=== PATIENT | male | born 2000 | race Caucasian/White ===

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

== ENCOUNTER 2020-03-28 23:51 | Emergency (ER) | payer OTHER ==
[~2020-03-28] VITALS: Ht 180.3 cm; Wt 71.0 kg
[2020-03-29] MEDS ORDERED: ALUMINUM/MAG/SIMETHICONE 30 ML UDC PO PRN (00:30)
[2020-03-29] MEDS ORDERED: MAALOX/HYOSCYAMINE/LIDOCAINE 45 ML BTL ONE (00:30)
[2020-03-29] MEDS ORDERED: ALUMINUM/MAG/SIMETHICONE 30 ML UDC ONE (00:46)
[2020-03-29 00:47] VITALS: BP 119/66
== END 2020-03-29 00:49 | disposition home or self-care (01) ==
LOC: ED 03-29 00:19
DX: R07.9 Chest pain, unspecified (principal); R10.9 Unspecified abdominal pain; J02.9 Acute pharyngitis, unspecified
CPT/HCPCS: 93005; 99283

== ENCOUNTER 2020-07-19 02:36 | Emergency (ER) | payer OTHER ==
[~2020-07-19] VITALS: Ht 180.3 cm; Wt 74.4 kg
[2020-07-19 02:40] VITALS: BP 135/95
== END 2020-07-19 04:12 | disposition home or self-care (01) ==
LOC: ED 03:11
DX: K08.89 Other specified disorders of teeth and supporting structures (principal)
CPT/HCPCS: 99283

== ENCOUNTER 2020-07-31 23:36 | Emergency (ER) | payer OTHER ==
[~2020-07-31] VITALS: Ht 180.3 cm; Wt 75.0 kg
--- NOTE | 2020-07-31 23:46 | NUR ---
PT TO RADIOLOGY AT THIS TIME VIA WHEELCHAIR
--- NOTE | 2020-08-01 00:03 | NUR ---
Task RN. Assessment: A&o x4, answering questions appropriately. States he was drinking ETOH with friends this evening, dropped 45# weight onto R foot approx 30 min [employer]. Mild ecchymosis/swelling noted to R foot, no gross deformities. (+) CSM, (+) DP pulse noted to affected extremity. States he took 800 mg ibuprofen [employer] without effect. C/o 7/10 pain. Denies significant medical hx. Bed low, side rails up, call veliz within reach. Friends at bedside with pt's consent
[2020-08-01] MEDS ORDERED: HYDROmorphone 1 MG/ML, 1ML INJ ONE ×2 (00:16→00:22)
--- NOTE | 2020-08-01 00:29 | NUR ---
BEDSIDE REPORT FROM FRANCHESCA VALENCIA RN. PT NAD, WAITING FOR CT, WCTM.
[2020-08-01] MEDS ORDERED: HYDROmorphone 1 MG/ML, 1ML INJ IM ONE (00:30)
--- NOTE | 2020-08-01 00:36 | NUR ---
PT TO CT AT THIS TIME.
--- NOTE | 2020-08-01 00:59 | NUR ---
pt resting on pita, TIARA, states pain is significantly decreased, now a 2/10. waiting for CT read, WCTM.
[2020-08-01 02:22] VITALS: BP 121/87
--- NOTE | 2020-08-01 02:28 | NUR ---
Patient given discharge instructions and they have confirmed that they understand the instructions. Patient ambulatory with steady gait. NAD, DENIES ADDITIONAL QUESTIONS OR NEEDS, FRIEND DRIVING HOME, NO BELONGINGS LEFT IN ROOM AFTER DC.
== END 2020-08-01 02:29 | disposition home or self-care (01) ==
LOC: ED 23:59
DX: S90.31XA Contusion of right foot, initial encounter (principal); G89.11 Acute pain due to trauma; X58.XXXA Exposure to other specified factors, initial encounter; Y93.89 Activity, other specified; Y92.098 Other place in other non-institutional residence as the place of occurrence of the external cause; Y99.8 Other external cause status
CPT/HCPCS: 29515; 73630; 73700; 96372; 99284; J1170; 99283